=== PATIENT | male | born 1955 | race Caucasian/White ===

== ENCOUNTER 2024-03-26 13:50 | Outpatient (CLI) | payer BC, MEDICARE | END 2024-03-26 13:51 | disposition home or self-care (01) | LOC: BICMRI 13:50 | PROVIDERS: ATTEND Family Medicine | DX: M50.123 Cervical disc disorder at C6-C7 level with radiculopathy (principal); M47.22 Other spondylosis with radiculopathy, cervical region; M48.02 Spinal stenosis, cervical region; G95.9 Disease of spinal cord, unspecified; Z98.890 Other specified postprocedural states; Z98.1 Arthrodesis status | CPT/HCPCS: 72141 ==